=== PATIENT | male | born 1990 | race Hispanic/Latino ===

== ENCOUNTER 2023-06-28 23:54 | Emergency (ER) | payer SELFPAY ==
[2023-06-29 00:14] VITALS: BP 107/66; PULSE 98; RESP 18; TEMP 36.9; O2SAT 96; BMI 38.9
--- NOTE | 2023-06-29 00:31 | DI.RAD.S_ITS ---
PROCEDURE: XR RIBS RT MIN 3V W CXR 1V INDICATIONS: Rt rib pain TECHNIQUE: 2 views of the ribs were acquired, along with a single view chest. COMPARISON: None. FINDINGS: Surgical changes and devices: None. Bones and chest wall: No displaced fracture or dislocation. Lungs and pleura: Lungs are clear. No pleural effusions. Mediastinum: Normal heart size IMPRESSION: No acute radiographic abnormality. If there is high concern for occult injury, consider repeat radiography or cross-sectional imaging. Dictated by: Simeon Roberts M.D. on 06/29/2023 at 0:47 Approved by: Simeon Roberts M.D. on 06/29/2023 at 0:48
--- NOTE | 2023-06-29 01:05 | ED_ITS ---
HPI - General Adult General Chief complaint: Shortness of Breath/Dyspnea Stated complaint: rt side abd pain, sweating, chills Time Seen by Provider: 06/29/23 00:00 Source: patient Mode of arrival: Ambulatory History of Present Illness HPI narrative: Patient is a 33-year-old male here for evaluation of right-sided lower rib discomfort. He states that after playing a video game he stood up and jumped up and down and felt a pop to his right lower ribs. Since that time he has had discomfort with palpation of this area and also discomfort with taking deep breaths. No urinary symptoms. No skin changes. Has not tried anything for sym ptoms prior to arrival. Review of Systems Constitutional Constitutional: Reports system reviewed and no additional complaints, except as documented Respiratory Respiratory: Reports system reviewed and no additional complaints, except as documented Gastrointestinal Gastrointestinal: Reports system reviewed and no additional complaints, except as documented Integumentary/Breasts Skin/Breast: Reports system reviewed and no additional complaints, except as documented Patient History Social History Smoking Status: Current every day smoker Smoking Status: Current every day smoker tobacco type: vaping alcohol intake frequency: a few times a month Substance Use Type: marijuana Exam Initial Vital Signs Initial Vital Signs: Vital Signs Temperature 98.4 F 06/29/23 00:14 Pulse Rate 98 H 06/29/23 00:14 Respiratory Rate 18 06/29/23 00:14 Blood Pressure 107/66 06/29/23 00:14 Pulse Oximetry 96 06/29/23 00:14 Oxygen Delivery Method Room Air 06/29/23 00:14 Chest Other: Tenderness to palpation right lower ribs Resp Effort & Inspection: normal respiratory effort Auscultation: clear to auscultation bilaterally Cardio Rate: regular rate Rhythm: regular rhythm Skin General: no rashes or lesions noted Course Orders Ordered: ED Orders 06/29/23 00:31 XR ribs RT min 3V w CXR1V Stat Vital Signs Vital signs: Vital Signs - 8 hr 06/29/23 00:14 Temperature 98.4 F Pulse Rate 98 H Respiratory Rate 18 Blood Pressure 107/66 Pulse Oximetry 96 Oxygen Delivery Method Room Air Medical Decision Making Lab Data Lab results reviewed: Yes I reviewed the patient's lab results. Labs: Urine Dip Bedside Urine Glucose Negative Bedside Urine Bilirubin - Negative Bedside Urine Ketone - Negative Urine Specific [place] 1.025 Bedside Urine Occult Blood +/- Bedside Urine pH 6.0 Bedside Urine Protein - Negative Bedside Urine Urobilinogen - Negative Bedside Urine Nitrite - Negative Point of care testing: Urine Dip Bedside Urine Glucose Negative Bedside Urine Bilirubin - Negative Bedside Urine Ketone - Negative Urine Specific [place] 1.025 Bedside Urine Occult Blood +/- Bedside Urine pH 6.0 Bedside Urine Protein - Negative Bedside Urine Urobilinogen - Negative Bedside Urine Nitrite - Negative Imaging Data rib x-ray: Radiologist's Impression: PROCEDURE: XR RIBS RT MIN 3V W CXR 1V INDICATIONS: Rt rib pain TECHNIQUE: 2 views of the ribs were acquired, along with a single view chest. COMPARISON: None. FINDINGS: Surgical changes and devices: None. Bones and chest wall: No displaced fracture or dislocation. Lungs and pleura: Lungs are clear. No pleural effusions. Mediastinum: Normal heart size IMPRESSION: No acute radiographic abnormality. If there is high concern for occult injury, consider repeat radiography or cross-sectional imaging. [facility] Narrative Medical decision making narrative: Patient has reproducible tenderness to palpation of the right-sided lower ribs. No crepitus felt. He has no abdominal tenderness. Lungs are clear. Rib x-ray shows no signs of fracture. Underlying lung is unremarkable as well. Low suspicion for intra-abdominal issue as well. Suspect musculoskeletal. Discuss this with the patient. He declined need for any medication more than Tylenol or ibuprofen. Discharge home with return precautions. He expressed understanding and agreement. Discharge Plan Departure Patient Disposition: Home Clinical Impression: Rib pain on right side Instructions: DI for Rib Contusion Activity Restrictions/Additional Instructions: It is important that you occasionally take deep breaths. You can take Tylenol and/or ibuprofen for any discomfort. Return to the emergency department for new or worsening symptoms. Stand Alone Forms: Patient Portal/API
[2023-06-29 01:16] VITALS: BP 118/68; PULSE 93; RESP 16; O2SAT 95
[2023-06-29 01:44] LABS: Bacteria Urine None Seen; Culture Indicated Urine Cult Not Indicated; RBC Urine 0-1/HPF (0-5/HPF); Squamous Epithelial Cell Urine 0-1 /HPF (0-5/HPF); Urine Volume 10mL (spun); WBC Urine None Seen (0-5/HPF)
== END 2023-06-29 01:15 | disposition home or self-care (01) ==
PROVIDERS: Emergency Provider Emergency Medicine
DX: R07.81 Pleurodynia (principal)
CPT/HCPCS: 71101; 81003; 81015; 87086; 99282; 99283